=== PATIENT | male | born 2000 | race African-American/Black ===

== ENCOUNTER 2020-10-21 14:18 | Emergency (ER) | payer MEDICAID, SELFPAY ==
[2020-10-21 14:33] VITALS: BP 146/66; PULSE 88; RESP 20; TEMP 37.5; O2SAT 100
--- NOTE | 2020-10-21 14:35 | ED.GENADULT ---
HPI - General Adult General Chief complaint: Urogenital-Male Stated complaint: Std testing Time Seen by Provider: 10/21/20 14:35 Source: patient Mode of arrival: ambulatory Limitations: no limitations History of Present Illness HPI narrative: 20-year-old male patient presents to the [facility] with complaints of symptoms of possible STD. Patient states that he has been having some painful urination along with discharge and some blood. Denies any pain to the testicle area. Patient states he has been having symptoms now for about 5 days. Denies any fevers, body aches or chills. Patient states that he is sexually active with women but states he did use a condom last time he had sex which was about a week and a half ago. Patient states he has had times where he has not used condoms. Related Data Allergies Allergy/AdvReac Type Severity Reaction Status Date / Time No Known Allergies Allergy Verified 10/21/20 14:22 Review of Systems Review of Systems: Narrative: CONSTITUTIONAL: Denies fever, chills, or sweats. EYES: Denies visual changes, redness, or discharge. ENT: Denies rhinorrhea, congestion, sore throat, or otalgia. CARDIOVASCULAR: Denies chest pain, palpitations, or edema. RESPIRATORY: Denies cough or dyspnea. GASTROINTESTINAL: Denies abdominal pain, nausea, vomiting, or diarrhea. GENITOURINARY: Positive dysuria and hematuria. Positive penile discharge SKIN: Denies rash or itching. MUSCULOSKELETAL: Denies back pain, joint pain, or myalgia. NEUROLOGIC: Denies headache, numbness, or weakness. PSYCHIATRIC: Denies anxiety or depression. [facility] Social History Social History Gender identity (if verbalized by the patient): Male Comments At the time of my signature I agree with nursing past medical history, surgical, social, and family history. There is no relevant family history pertinent to the presenting complaint. Exam Narrative: Exam Narrative: GENERAL: Well-appearing, well-nourished, and in no acute distress. HEAD: Normocephalic, atraumatic. EYES: PERRLA and EOMI. ENT: Nares clear, no rhinorrhea or epistaxis. Mucous membranes moist. NECK: Supple. No lymphadenopathy CHEST: Clear to auscultation. No respiratory distress. HEART: Regular rate and rhythm. No murmur heard. Normal peripheral pulses. ABDOMEN: Soft, nontender, nondistended, normal active bowel sounds. No CVA tenderness on percussion : Deferred EXTREMITIES: Normal range of motion. No edema. SKIN: Warm, dry, no rash. NEURO: No focal deficits. Alert and oriented x3. Course Vital Signs Vital signs: Vital Signs Temperature 37.5 C 10/21/20 14:33 Pulse Rate 88 10/21/20 14:33 Respiratory Rate 20 10/21/20 14:33 Blood Pressure 146/66 H 10/21/20 14:33 Pulse Oximetry 100 10/21/20 14:33 Temperature 37.5 C 10/21/20 14:33 Pulse Rate 88 10/21/20 14:33 Respiratory Rate 20 10/21/20 14:33 Blood Pressure 146/66 H 10/21/20 14:33 Pulse Oximetry 100 10/21/20 14:33 Vital signs reviewed The patient has been informed that they may have pre-hypertension or Hypertension based on a BP reading in the department. I recommend that the patient call the primary care provider listed on their discharge instructions or a physician of their choice this week to arrange follow up for further evaluation of possible pre-hypertension or Hypertension Medical Decision Making Differential Diagnosis Differential Diagnosis: Differential diagnosis: Gonorrhea, chlamydia, Trichomonas, bacterial vaginosis, herpes, HIV, yeast infection, urinary tract infection. Notify patient that we will go ahead and treat him for gonorrhea, chlamydia and trichomonas today. Discussed with patient he will get a shot of Rocephin prior to leaving as well as 2 prescriptions for the remainder of the STDs. Discussed with him I will also send him home with some Zofran that he can take before he takes the antibiotics and needs to be taki
[2020-10-21] MEDS: cefTRIAXone 250 MG VIAL 500 MG IM (15:01)
== END 2020-10-21 15:18 | disposition home or self-care (01) ==
PROVIDERS: Emergency Provider Nurse Practitioner Family
DX: Z20.2 Contact with and (suspected) exposure to infections with a predominantly sexual mode of transmission (principal)
CPT/HCPCS: 81003; 87086; 87491; 87591; 87661; 96372; 99213; G0463; J0696

== ENCOUNTER 2021-03-06 13:41 | Emergency (ER) | payer SELFPAY ==
[2021-03-06 13:49] VITALS: BP 130/81; PULSE 77; RESP 16; TEMP 36.6; O2SAT 100
--- NOTE | 2021-03-06 14:29 | ED.MALEGU ---
HPI - Male Genitourinary General Chief complaint: Urogenital-Male Stated complaint: std testing Time Seen by Provider: 03/06/21 14:20 Source: patient Mode of arrival: ambulatory Limitations: no limitations History of Present Illness HPI Narrative: Jing Blandon is a 20 yo male with no PMH comes to [facility] with recurrent symptoms of an STD such as gonorrhea that he was treated for back in October 2020. He states that he has drainage and discharge from the end of his penis for the last 2 to 3 weeks he is claims he has not had any unprotected intercourse since he started become symptomatic Related Data Allergies Allergy/AdvReac Type Severity Reaction Status Date / Time No Known Allergies Allergy Verified 03/06/21 13:56 Review of Systems Review of Systems: Narrative: CONSTITUTIONAL: Denies fever, chills, sweats. EYES: Denies visual changes, redness, discharge. ENT: Denies rhinorrhea, congestion, sore throat, otalgia. CARDIOVASCULAR: Denies chest pain, palpitations, edema. RESPIRATORY: Denies dyspnea, wheezing, cough GASTROINTESTINAL: Denies abdominal pain, nausea, vomiting, diarrhea. GENITOURINARY: Denies dysuria, hematuria, abnormal discharge SKIN: Denies rash or itching. NEUROLOGIC: Denies numbness, or focal weakness. PSYCHIATRIC: Denies anxiety or depression. Discharge from penis PMFSH Past Medical History Medical History (Updated 03/06/21 @ 14:43 by Miranda Muir CNP) No acute medical problems Family History Family History Other Diabetes mellitus Heart disease Hypertension Social History Social History (Updated 03/06/21 @ 14:40 by Miranda Muir CNP) Smoking status: Current every day smoker Tobacco type: cigars Alcohol intake: current Substance use: current Substance use type: marijuana Living arrangements: with friend(s) Gender identity (if verbalized by the patient): Male Comments At time of signature, I agree with nursing past medical, surgical, social and family history. There is no relevant family history pertinent to the presenting complaint. Exam Narrative: Exam Narrative: GENERAL: This is a well-nourished, well-developed patient, in mild distress. HEAD: normocephalic, atraumatic. EYES: Sclera clear/white. Vision is grossly intact. EARS: External ears normal,. Hearing grossly intact. NOSE: External nose normal without nasal discharge, nares without redness, no rhinorrhea. THROAT: Mucous membranes moist, Mouth: moist mucous membranes CARDIOVASCULAR: Regular rate and rhythm without murmurs, gallops, or rubs. RESPIRATORY: Clear to auscultation. Breath sounds equal bilaterally. No wheezes, rales, or rhonchi. GASTROINTEStestinal: abdomen soft SKIN: warm, intact with no suspicious lesions or rash, good texture and turgor. NEURO: awake, alert, and oriented to person, place and time. There were no obvious focal neurologic abnormalities. Steady gait EXTREMITIES: Normal range of motion. BACK: Nontender without deformity Course Course Emergency Course: [facility] with complaints of penile discharge x2 to 3 weeks Be treated for exposure to STD with Rocephin and Zithromax with a prescription for doxycycline-patient is not being treated presently for trichomoniasis based on symptoms and the he has had the same partner and they got infected by the first go around in October Vital Signs Vital signs: Vital Signs Temperature 97.8 F 03/06/21 13:49 Pulse Rate 77 03/06/21 13:49 Respiratory Rate 16 03/06/21 13:49 Blood Pressure 130/81 03/06/21 13:49 Pulse Oximetry 100 03/06/21 13:49 Temperature 97.8 F 03/06/21 13:49 Pulse Rate 77 03/06/21 13:49 Respiratory Rate 16 03/06/21 13:49 Blood Pressure 130/81 03/06/21 13:49 Pulse Oximetry 100 03/06/21 13:49 MDM - Male Genitourinary Differential Diagnosis Differential diagnosis: Likely urinary tract infection, urethritis, e
[2021-03-06] MEDS: cefTRIAXone 250 MG VIAL IM (14:56)
[2021-03-06] MEDS: AZITHROMYCIN 250 MG TABLET 1000 MG PO (14:56)
[2021-03-06] MEDS: LIDOCAINE HCL 1% LOCAL INJ 20 ML VIAL IM (14:56)
== END 2021-03-06 15:16 | disposition home or self-care (01) ==
PROVIDERS: Emergency Provider Nurse Practitioner
DX: A54.9 Gonococcal infection, unspecified (principal); F17.290 Nicotine dependence, other tobacco product, uncomplicated
CPT/HCPCS: 87491; 87591; 87661; 96372; 99213; A9270; G0463; J0696

== ENCOUNTER 2022-05-28 19:38 | Emergency (ER) | payer BC, SELFPAY ==
[2022-05-28 19:46] VITALS: BP 138/83; PULSE 63; RESP 18; TEMP 36.6; O2SAT 100
--- NOTE | 2022-05-28 20:04 | ED.DENTAL ---
HPI - Dental/Oral General Chief complaint: Dental/Oral Stated complaint: tooth pain Time Seen by Provider: 05/28/22 20:04 Source: patient Mode of arrival: ambulatory History of Present Illness HPI Narrative: 22-year-old male presented for complaint of left lower dental pain worsening over the past 3 days. He endorses he has had this pain intermittently for several months to top and bottom left teeth. States today it is radiating across the lower jaw and feels mild swelling. Taking Aleve and using warm salt water rinse. Cannot be seen by the dentist until August. He denies drainage, n/v/d/f/c. Complaint: tooth pain Related Data Allergies Allergy/AdvReac Type Severity Reaction Status Date / Time No Known Allergies Allergy Verified 05/28/22 19:47 Review of Systems Review of Systems: CONSTITUTIONAL: Denies body aches, fever, chills ENT: Denies rhinorrhea, congestion, sore throat, or otalgia. Reports dental pain CARDIOVASCULAR: Denies chest pain, palpitations RESPIRATORY: Denies cough or dyspnea. SKIN: Denies rash, itching, or wounds. MUSCULOSKELETAL: Denies myalgia. NEUROLOGIC: Denies headache, numbness, tingling, or weakness. [facility] Past Medical History Medical History No acute medical problems Family History Family History Other Diabetes mellitus Heart disease Hypertension Social History Social History Smoking status: Current every day smoker Tobacco type: cigars Alcohol intake: current Substance use: current Substance use type: marijuana Gender identity (if verbalized by the patient): Male Comments At time of signature, I have reviewed and agree with nursing past medical, surgical, social and family history unless otherwise noted. Please see nursing chart for further information. There is no relevant family history pertinent to the presenting complaint Exam Narrative: GENERAL: Appears in pain; no acute distress. HEAD: Normocephalic, atraumatic. EYES: EOMI. No redness or drainage. Conjunctivae normal. ENT: Dental pain location of #17, mild gum swelling over the tooth, tender to palpation, appears to have caries. Also reports pain to #16 without significant swelling. no focal signs of space occupying lesions that are compromising to the airway; No uvular deviation or soft palate edema. The floor of the mouth is soft with no signs of Damien's Angina; no induration below mandible, no neck pain. Mucous membranes pink and moist. TMs normal bilaterally. Throat normal. NECK: Normal AROM. No lymphadenopathy. CHEST: Clear to auscultation. HEART: Regular rate and rhythm. SKIN: Warm, dry, no rash. Normal skin turgor. NEURO: Alert and oriented x3. Gait steady. Course Course Emergency Course: Patient is aware of diagnosis, understands and agrees to treatment plan. Anticipatory guidance given. Patient agrees to follow-up as directed and is aware of reasons to seek care at the emergency department. Portions of this record may have been created with voice recognition software Level of Care: Express Care Visit Vital Signs Vital signs: Vital Signs Temperature 97.8 F 05/28/22 19:46 Pulse Rate 63 05/28/22 19:46 Respiratory Rate 18 05/28/22 19:46 Blood Pressure 138/83 05/28/22 19:46 Pulse Oximetry 100 05/28/22 19:46 Oxygen Delivery Room Air 05/28/22 19:46 Temperature 97.8 F 05/28/22 19:46 Pulse Rate 63 05/28/22 19:46 Respiratory Rate 18 05/28/22 19:46 Blood Pressure 138/83 05/28/22 19:46 Pulse Oximetry 100 05/28/22 19:46 Oxygen Delivery Room Air 05/28/22 19:46 MDM - Dental/Oral MDM Narrative Medical decision making narrative: Presentation consistent with dentalgia. Plans to f/u with dentist as scheduled in Nov, but will contact someone from our list and schedule soon
== END 2022-05-28 20:20 | disposition home or self-care (01) ==
PROVIDERS: Emergency Provider Nurse Practitioner Family
DX: K08.89 Other specified disorders of teeth and supporting structures (principal); F17.290 Nicotine dependence, other tobacco product, uncomplicated
CPT/HCPCS: 99213; G0463

== ENCOUNTER 2022-08-26 11:03 | Emergency (ER) | payer BC, SELFPAY ==
[2022-08-26 11:09] VITALS: BP 152/78; PULSE 98; RESP 16; TEMP 37.2; O2SAT 99
--- NOTE | 2022-08-26 11:16 | ED.URI ---
HPI - URI/Sore Throat General Chief Complaint: Upper Respiratory Infection Stated Complaint: flu like sx Source: patient and RN notes reviewed Mode of arrival: ambulatory Limitations: no limitations History of Present Illness HPI Narrative: 22 y/o male presented for c/o Headache, body aches, cough, nausea, and subjective fever. Onset yesterday. Cough productive. Endorses decreased appetite. Girlfriend tested positive for influenza yesterday. Not taking anything for symptoms. Taking amox for tooth infection. MD elicited complaint: cough Related Data Home Medications Medication Instructions Recorded Confirmed amoxicillin 500 mg tablet 500 mg DIRECTED 08/26/22 08/26/22 Allergies Allergy/AdvReac Type Severity Reaction Status Date / Time No Known Allergies Allergy Verified 05/28/22 19:47 Review of Systems Review of Systems: CONSTITUTIONAL: Endorses malaise, chills, sweats, fever EYES: Denies visual changes, redness, or discharge ENT: Reports rhinorrhea,denies sinus pain, otalgia, sore throat CARDIOVASCULAR: Denies chest pain, palpitations, edema RESPIRATORY: Reports cough, post nasal drainage. Denies dyspnea GASTROINTESTINAL: Denies abdominal pain, nausea, vomiting, diarrhea SKIN: Denies rash or itching MUSCULOSKELETAL: Endorses myalgia NEUROLOGIC: reports headache PMFSH Past Medical History Medical History No acute medical problems Family History Family History Other Diabetes mellitus Heart disease Hypertension Social History Social History Smoking status: Current every day smoker Tobacco type: cigars Alcohol intake: current Substance use: current Substance use type: marijuana Gender identity (if verbalized by the patient): Male Exam Narrative: GENERAL: Ill-appearing, nontoxic EYES: PERRLA, conjunctivae clear ENT: Mucous membranes moist. TMs pearly lozano with light reflex bilaterally; no tragal tenderness. Oropharynx erythematous without lesions or exudate, no drooling, no hoarseness, no trismus, uvula midline. No tripod positioning, muffled voice, soft palate or pharyngeal wall bulging NECK: Supple. No lymphadenopathy CHEST: Clear to auscultation, breath sounds equal. HEART: Regular rate and rhythm. No murmur heard. SKIN: Warm, dry, no rash. Course Course Emergency Course: Patient is aware of diagnosis, understands and agrees to treatment plan. Anticipatory guidance given. Patient agrees to follow-up as directed and is aware of reasons to seek care at the emergency department. Portions of this record may have been created with voice recognition software Level of Care: Express Care Visit Vital Signs Vital signs: Vital Signs Temperature 99.0 F 08/26/22 11:09 Pulse Rate 98 08/26/22 11:09 Respiratory Rate 16 08/26/22 11:09 Blood Pressure 152/78 H 08/26/22 11:09 Pulse Oximetry 99 08/26/22 11:09 Oxygen Delivery Room Air 08/26/22 11:09 Temperature 99.0 F 08/26/22 11:09 Pulse Rate 98 08/26/22 11:09 Respiratory Rate 16 08/26/22 11:09 Blood Pressure 152/78 H 08/26/22 11:09 Pulse Oximetry 99 08/26/22 11:09 Oxygen Delivery Room Air 08/26/22 11:09 reviewed MDM - URI/Sore Throat MDM Narrative Medical decision making narrative: Based on sx and known influenza exposure. Will give Rx tamiflu per request. Advised supportive measures and signs/symptoms to go to the ER. Pt is appropriate for outpt treatment and f/u. Differential Diagnosis Differential diagnosis: Likely upper respiratory infection, sinusitis and viral infection Discharge Plan Discharge Clinical Impression: Viral infection, Exposure to influenza Patient Disposition: Home, Self-Care Condition: Stable Instructions: Influenza (ED) Additional Instructions: Influenza exposure You should a
== END 2022-08-26 11:30 | disposition home or self-care (01) ==
PROVIDERS: Emergency Provider Nurse Practitioner Family
DX: B34.9 Viral infection, unspecified (principal); Z20.828 Contact with and (suspected) exposure to other viral communicable diseases; F17.290 Nicotine dependence, other tobacco product, uncomplicated
CPT/HCPCS: 99213; G0463

== ENCOUNTER 2022-09-15 08:12 | Emergency (ER) | payer BC, SELFPAY ==
[2022-09-15 08:18] VITALS: BP 152/77; PULSE 81; RESP 18; TEMP 36.3; O2SAT 100
--- NOTE | 2022-09-15 08:30 | ED.GENADULT ---
HPI - General Adult General Chief complaint: Upper Respiratory Infection Stated complaint: Fever,Sneezing, Sore Throat Source: patient Mode of arrival: ambulatory Limitations: no limitations History of Present Illness HPI narrative: Patient presents for evaluation of sick symptoms. He states he has had intermittent symptoms for last 2 weeks but symptoms have been primarily present for last 2 days. Symptoms include hot flashes, productive cough of brown sputum, sore throat. No chills, shortness of breath, nausea, vomiting, diarrhea. His girlfriend recently tested positive for influenza. He is currently on amoxicillin for dental infection but has not been taking it as directed. He is taking Tylenol and ibuprofen for his symptoms. He has had COVID twice in the past, with most recent time being in August 2021. Related Data Home Medications Medication Instructions Recorded Confirmed amoxicillin 500 mg tablet 500 mg DIRECTED 08/26/22 09/15/22 Allergies Allergy/AdvReac Type Severity Reaction Status Date / Time No Known Allergies Allergy Verified 09/15/22 08:24 Review of Systems Review of Systems: CONSTITUTIONAL:Reports hot flashes. Denies objective fever, chills, or sweats. EYES: Denies visual changes, redness, or discharge. ENT: Reports sore throat. Denies rhinorrhea, congestion, or otalgia. CARDIOVASCULAR: Denies chest pain, palpitations, or edema. RESPIRATORY: Reports productive cough of brown sputum. Denies dyspnea. GASTROINTESTINAL: Denies abdominal pain, nausea, vomiting, or diarrhea. GENITOURINARY: Denies dysuria or hematuria. SKIN: Denies rash or itching. MUSCULOSKELETAL: Denies back pain, joint pain, or myalgia. NEUROLOGIC: Denies headache, numbness, dizziness, or weakness. PSYCHIATRIC: Denies anxiety or depression. [facility], [facility] Past Medical History Medical History (Updated 09/15/22 @ 08:48 by JESSICA Lewis, ROSA) No acute medical problems Surgical History Surgical History No pertinent past surgical history Family History Family History (Updated 09/15/22 @ 08:39 by JESSICA Lewis, ROSA) Mother Family history non-contributory Other Diabetes mellitus Heart disease Hypertension Social History Social History Smoking status: Current every day smoker Tobacco type: e-cigarettes/vaping Alcohol intake: current Substance use: current Substance use type: marijuana Gender identity (if verbalized by the patient): Male Sexual Orientation (if Verbalized by the Patient): Straight or Heterosexual Spiritual care concerns: No Exam Narrative: GENERAL: Well-appearing, well-nourished, and in no acute distress. HEAD: Normocephalic, atraumatic. EYES: PERRLA and EOMI. ENT: Nares clear, no rhinorrhea or epistaxis. Mucous membranes moist. Oropharynx without tonsillar hypertrophy exudate or other lesions. There is some mild posterior pharyngeal erythema. [place] teeth are impacted. Bilateral TMs pearly lozano nonbulging NECK: Supple. No adenopathy or masses. No carotid bruits or JVD CHEST: Clear to auscultation. No respiratory distress. No wheezes rales or rhonchi HEART: Regular rate and rhythm. No murmur heard. Normal peripheral pulses. ABDOMEN: Soft, nontender, nondistended, normal active bowel sounds. EXTREMITIES: Normal range of motion. No edema. SKIN: Warm, dry, no rash. NEURO: No focal deficits. Alert and oriented x3. PSYCH: Normal mood and affect. Course Course Emergency Course: this is a 22-year-old male who presented for evaluation of sick symptoms after recent influenza exposure. Strep was negative. COVID negative. Influenza negative. Will treat with Mucinex DM and Cepacol. Continue amoxicillin which was previously prescribed. Follow up outpatient for further evaluation and treatment and go to ER for worsening symptoms. Pt in agreement
== END 2022-09-15 08:55 | disposition home or self-care (01) ==
PROVIDERS: Emergency Provider Nurse Practitioner
DX: B34.9 Viral infection, unspecified (principal); Z20.822 Contact with and (suspected) exposure to COVID-19; F17.290 Nicotine dependence, other tobacco product, uncomplicated; F12.90 Cannabis use, unspecified, uncomplicated
CPT/HCPCS: 87081; 87426; 87804; 87880; 99213; C9803; G0463

== ENCOUNTER 2022-11-09 14:33 | Emergency (ER) | payer BC, SELFPAY ==
[2022-11-09 14:40] VITALS: BP 130/70; PULSE 78; RESP 16; TEMP 36.6; O2SAT 99
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
== END 2022-11-09 15:08 | disposition home or self-care (01) ==
PROVIDERS: Emergency Provider Nurse Practitioner
DX: S09.90XA Unspecified injury of head, initial encounter (principal); S40.021A Contusion of right upper arm, initial encounter; V47.6XXA Car passenger injured in collision with fixed or stationary object in traffic accident, initial encounter; F17.290 Nicotine dependence, other tobacco product, uncomplicated; F12.90 Cannabis use, unspecified, uncomplicated
CPT/HCPCS: 99212; G0463